=== PATIENT | male | born 1965 | race Caucasian/White ===

== ENCOUNTER 2017-02-05 23:50 | Emergency (ER) | payer BC ==
[2017-02-05 21:48] LABS: BASOPHILS 0.1 %; BASOPHILS ABSOLUTE 0.01 10/3/uL (0.0-0.16); EOSINOPHILS 2.2 %; EOSINOPHILS ABSOLUTE 0.15 10/3/uL (0.0-0.53); HEMATOCRIT 40.4 % (40.0-51.0); HEMOGLOBIN 14.9 g/dL (13.6-17.8); IMMATURE GRANULOCYTES 0.4 %; IMMATURE GRANULOCYTES ABSOLUTE 0.03 10/3/uL (0.0-0.11); LYMPHOCYTES 29.9 %; MANUAL DIFF NO %; MEAN CORPUS HGB CONC 36.9 g/dL (32.0-36.0); MEAN CORPUSCULAR HEMOGLOB 33.8 pg (26.0-34.0); MEAN CORPUSCULAR VOLUME 91.6 fL (80-100); MEAN PLATELET VOLUME 10.2 fL (9.2-13.0); MONOCYTES 6.4 %; MONOCYTES ABSOLUTE 0.43 10/3/uL (0.21-1.20); NEUTROPHILS ABSOLUTE 4.06 10/3/uL (2.02-8.40); PLATELET COUNT 180 10/3/uL (150-400); RBC DISTRIBUTION WIDTH 12.5 % (12.0-16.0); RED CELL COUNT 4.41 10/6/uL (4.7-6.1); WHITE BLOOD CELLS 6.7 10/3/uL (4.5-10.5)
[2017-02-05 21:56] LABS: PARTIAL THROMBO TIME 29.4 SEC (22.5-37.2); PROTIME (NOT ORD) 13.1 SEC (12.0-14.5)
[2017-02-05 22:04] LABS: BUN (BLOOD UREA NITROGEN) 14 MG/DL (6-23); CALCIUM, SERUM 8.3 MG/DL (8.5-10.4); CHEST PAIN PROFILE TAT 0 Hrs 20 Mins; CHLORIDE, SERUM 108 MMOL/L (96-112); CO2 (CARBON DIOXIDE) 25 MMOL/L (24-34); CREATININE 1.09 MG/DL (0.70-1.30); GFR AFRICAN AMERICAN 89 ML/MIN (>=60); GFR NON AFRICAN AMERICAN 77 ML/MIN (>=60); GLUCOSE, SERUM 113 MG/DL (60-99); POTASSIUM, SERUM 3.9 MMOL/L (3.5-5.3); SODIUM, SERUM 142 MMOL/L (135-148); TROPONIN I <0.02 NG/ML (<0.05)
[~2017-02-05 23:50] MED LIST: ASA5GR PO; ASAB PO; CLARIT10 PO; COREG3 PO; PROTONIX PO
== END 2017-02-06 00:08 | disposition left against medical advice (07) ==
LOC: ER 23:50
PROVIDERS: Emergency Medicine
DX: Z53.21 Procedure and treatment not carried out due to patient leaving prior to being seen by health care provider (principal)
CPT/HCPCS: 71020; 80048; 83735; 84484; 85025; 85610; 85730; 93005